=== PATIENT | female | born 1980 | race Caucasian/White ===

== ENCOUNTER 2017-09-07 18:41 | Emergency (ER) | payer BC ==
[2017-09-07 18:43] VITALS: BP 125/71; PULSE 87; RESP 14; TEMP 98.2; O2SAT 100
[2017-09-07] MEDS ORDERED: PRENCHW (19:17)
[2017-09-07 19:26] VITALS: BP_SYST 106; BP_SYST 110; BP_SYST 99; BP_DIAS 55; BP_DIAS 56; BP_DIAS 61; RESP 18; RESP 20; O2SAT 99
--- NOTE | 2017-09-07 19:26 | PD ---
HPI Chief Complaint: Syncope/Near-Syncope Time Seen by Provider: 19:20 Travel History International Travel<30 days: No Contact w/Intl Traveler<30days: No Traveled to known affect area: No History of Present Illness HPI 37-year-old female presents to the emergency department by private transportation the care of her and daughter for evaluation of syncopal episode. According the patient she is 25 weeks with last menstrual period March 2017 and do with plan 12/11/17. Patient states they traveled yesterday from [place] to [place] by car. Patient ate food in [place] that upset her stomach and her stomach he had diarrhea and she had nausea and then last evening had 2 episodes of vomiting without hematemesis or coffee-ground emesis possibly mildly bilious emesis and multiple episodes of diarrhea. This morning while she was in the process of getting ready in her hotel room she felt dizzy and then had a brief fainting spell she states that she was standing on carpet and felt dizzy with calling her and then found herself talking on the phone on the floor states that he picked up the phone within 2 rings and when he was talking to her she was talking normally and she states she merely felt better. Patient denies any head pain neck pain back pain chest pain shortness of breath rib pain abdominal pain pelvic pain flank pain or extremity pain. Patient states that she's had no vomiting or diarrhea since that event. Patient has been drinking Gatorade and possible throughout the day. Patient called her [employer] in [place] and the on-call provider recommend she come to the hospital to be evaluated. Patient's had no fever or chills. Patient's had episode of syncopal episodes after gastroenteritis in the past. Patient has had no contractions has had no pelvic pain has had no vaginal bleeding spotting or fluid leak. Patient also denies any dysuria frequency urgency hematuria or flank pain. Patient's had no respiratory illness symptoms. Patient states her daughter has had episode of vomiting 2 days ago. Patient is unclear if she may have had some dietary discretion by eating food to cause upset stomach yesterday or being exposed to a virus from her daughter 2 days before. Patient states she feels well now just decided to come to the emergency room to make sure that there was nothing associated with her . Patient again denies any pelvic pain pelvic cramping abdominal cramping abdominal contractions pelvic contractions back contractions vaginal discharge or vaginal bleeding vaginal spotting or fluid leak. Patient denies any chest pain or pleuritic chest pain or shortness of breath. Patient rates discomfort 0 10 in intensity. Patient states she felt fine yesterday prior to eating and [place]. [facility] Past Medical History Narrative Medical Ab0 no tobacco use no alcohol use nursing notes reviewed Tetanus Vaccination: Unknown Influenza Vaccination: No ?: LMP: 03/18/17 : 2 Para: 1 Past Surgical History Section: Yes Social History Alcohol Use: No Tobacco Use: No Substance Use: No Allergies-Medications (Allergen,Severity, Reaction): Coded Allergies: penicillin G (Verified Allergy, Unknown, 09/07/17) CHILDHOOD ALLERGY Reported Meds & Prescriptions Reported Meds & Active Scripts Active Reported 19 ( Vit W/ Ferrous Fumara) 29 Mg Iron-1 Mg Chw Review of Systems Except as stated in HPI: all other systems reviewed are Neg Physical Exam Narrative GENERAL: Well-developed well-nourished female in no acute distress no respiratory distress triage vital signs values are normal range GCS 15 SKIN: Warm and dry. HEAD: Atraumatic. Normocephalic. No scalp tenderness no bony abnormalities. EYES: Pupils equal and round. Extraocular muscles intact. No scleral icterus. No injection or drainage. ENT: No nasal bleeding or discharge. Mucous membranes pink and moist. Airway is patent. No hemotympanum. NECK: Trachea midline. No JVD. Supple no meningismus no midline tenderness to direct palpation along the cervical spine and no bony step-off. CARDIOVASCULAR: Regular rate and rhythm. Chest wall nontender to palpation. RESPIRATORY: No accessory muscle use. Clear to auscultation. Breath sounds equal bilaterally. GASTROINTESTINAL: Abdomen soft, non-tender, nondistended. Hepatic and splenic margins not palpable. Patient with fundal height to the umbilicus. Abdomen nontender to direct palpation. MUSCULOSKELETAL: Extremities without clubbing, cyanosis, or edema. No obvious deformities. NEUROLOGICAL: Awake and alert. No obvious cranial nerve deficits. Motor grossly within normal limits. Five out of 5 muscle strength in the arms and legs. Normal speech. PSYCHIATRIC: Appropriate mood and affect; insight and judgment normal. Data Data Last Documented VS Vital Signs Date Time Temp Pulse Resp B/P (MAP) Pulse Ox O2 Delivery O2 Flow Rate FiO2 1/6/18 19:26 99 Room Air 09/07/17 19:26 83 18 90 18 91 20 09/07/17 18:43 98.2 Orders Orders Electrocardiogram (09/07/17 19:20) Basic Metabolic Panel (Bmp) (09/07/17 19:20) Complete Blood Count With Diff (09/07/17 19:20) Magnesium (Mg) (09/07/17 19:20) Urinalysis - C+S If Indicated (09/07/17 19:20) Ecg Monitoring (09/07/17 19:20) Iv Access Insert/Monitor (09/07/17 19:20) Oximetry (09/07/17 19:20) Sodium Chloride 0.9% Flush (Ns Flush) (09/07/17 19:30) Orthostatic Vital Signs (09/07/17 19:20) Heart Tones (09/07/17 19:20) Protein Corrected Calcium(Pcc) (09/07/17 19:25) Urine Culture (09/07/17 19:25) Potassium Chloride (Kcl) (09/07/17 21:15) Calcium Carbonate Chew (Tums Chew) (09/07/17 21:15) Sodium Chlor 0.9% 1000 Ml Inj (Ns 1000 M (09/07/17 21:15) Nitrofurantoin Monohyd Macrocr (Macrobid (09/07/17 21:15) Labs Laboratory Tests Test 09/07/17 19:25 White Blood Count 9.3 TH/MM3 Red Blood Count 3.68 MIL/MM3 Hemoglobin 12.2 GM/DL Hematocrit 35.0 % Mean Corpuscular Volume 94.9 FL Mean Corpuscular Hemoglobin 33.1 PG Mean Corpuscular Hemoglobin Concent 34.9 % Red Cell Distribution Width 12.6 % Platelet Count 227 TH/MM3 Mean Platelet Volume 8.0 FL Neutrophils (%) (Auto) 82.5 % Lymphocytes (%) (Auto) 8.8 % Monocytes (%) (Auto) 7.4 % Eosinophils (%) (Auto) 1.0 % Basophils (%) (Auto) 0.3 % Neutrophils # (Auto) 7.6 TH/MM3 Lymphocytes # (Auto) 0.8 TH/MM3 Monocytes # (Auto) 0.7 TH/MM3 Eosinophils # (Auto) 0.1 TH/MM3 Basophils # (Auto) 0.0 TH/MM3 CBC Comment DIFF FINAL Differential Comment Urine Color LIGHT-YELLOW Urine Turbidity HAZY Urine pH 6.5 Urine Specific [place] 1.004 Urine Protein NEG mg/dL Urine Glucose (UA) NEG mg/dL Urine Ketones NEG mg/dL Urine Occult Blood NEG Urine Nitrite NEG Urine Bilirubin NEG Urine Urobilinogen LESS THAN 2.0 MG/DL Urine Leukocyte Esterase LARGE Urine RBC 3 /hpf Urine WBC 7 /hpf Urine Squamous Epithelial Cells 4 /hpf Urine Bacteria MANY /hpf Urine Hyaline Casts 1 /lpf Urine Mucus FEW /lpf Microscopic Urinalysis Comment CULTURE INDICATED Blood Urea Nitrogen 5 MG/DL Creatinine 0.51 MG/DL Random Glucose 99 MG/DL Total Protein 6.3 GM/DL Calcium Level 7.4 MG/DL Magnesium Level 1.7 MG/DL Sodium Level 136 MEQ/L Potassium Level 3.0 MEQ/L Chloride Level 105 MEQ/L Carbon Dioxide Level 24.3 MEQ/L Anion Gap 7 MEQ/L Estimat Glomerular Filtration Rate 135 ML/MIN Protein Corrected Calcium 7.8 MG/DL [facility] Medical Decision Making Medical Screen Exam Complete: Yes Emergency Medical Condition: Yes Medical Record Reviewed: Yes Interpretation(s) EKG: Normal sinus rhythm rate 80 normal axis and intervals no acute ST segment elevation or injury pattern or ectopy noted mild baseline artifact is present Differential Diagnosis Near-syncope vasovagal syncope arrhythmia I elect light disturbance dehydration PE Narrative Course patient placed on ocean transportation intermediary continuous pulse oximetry obtained and orthostatic blood pressure heart rate obtained IV access obtained specimens collected and sent for resulting Patient is a mature about the emergency department and voicing no concerns or complaints is had no nausea no vomiting taking oral hydration well Advise resulted and identified to have some hypokalemia potassium of 3.0 and hypocalcemia Calcium of 7.8 patient given oral replacement patient noted to have some mild change in orthostatic blood pressure and heart rate given 1 L of normal saline bolus and patient noted to have abnormal urinalysis with many bacteria leukocyte Estrace on clean-catch specimen therefore she was given oral Macrobid in the emergency department Patient's case was discussed with on-call OB ED physician recommend that patient is stable for outpatient management and no need for monitoring at this time and patient has confirm she has had no leg pain no vaginal discharge no vaginal bleeding no vaginal spotting and no fluid leak has had no cramping and has had no contraction like symptoms and feels well at this time is desirous of being discharged home this is been conveyed to the OB ED second time worker Dr. Vernon. Physician Communication Physician Communication discussed OB ED MD Dr Vernon --no need for monitoring --no OB complaints Diagnosis Primary Impression: Gastroenteritis Additional Impressions: Vasovagal syncope UTI (urinary tract infection) Qualified Codes: N39.0 - Urinary tract infection, site not specified Qualified Codes: Z3A.25 - 25 weeks gestation of Electrolyte disturbance Referrals: [employer] P[employer] Supervisor call for appointment Patient Instructions: General Instructions Additional Instructions: Increase fluid hydration Recommend clear liquid diet for next 12-24 hours advance as tolerated to bland/ James diet and regular diet as tolerated Increase potassium and calcium containing foods and beverages in dietary intake Continue vitamins Complete course of antibiotic as prescribed May take as tolerated Zofran for nausea and/or vomiting Take Tylenol/acetaminophen every 4 hours as needed for fever 100.4F or greater Return to the emergency department immediately for any concerns or change in condition Follow-up with your toolroom clerk call office in a.m. to schedule follow-up appointment Med/Other Pt SpecificInfo: Prescription(s) given Scripts Ondansetron Odt (Zofran Odt) 4 Mg Tab 4 MG SL Q6HR Y for Nausea/Vomiting, #7 TAB 0 Refills Prov: Margarita Montilla MD 09/07/17 Nitrofurantoin Monohydrate Macrocrystals (Macrobid) 100 Mg Cap 100 MG PO BID for Infection for 10 Days, #20 CAP 0 Refills Prov: Margarita Montilla MD 09/07/17 Disposition: 01 DISCHARGE HOME Condition: Stable Margarita Montilla MD Sep 07, 2017 19:26
[2017-09-07] MEDS ORDERED: SODIUM CHLORIDE 0.9% FLUSH 10 ML FLUSH IVF PRN (19:30)
[2017-09-07 19:41] LABS: AUTOMATED NEUTROPHIL # 7.6 TH/MM3 (1.8-7.7); BASOPHIL % 0.3 % (0.0-2.0); EOSINOPHIL # 0.1 TH/MM3 (0-0.4); HEMOGLOBIN 12.2 GM/DL (11.6-15.3); LYMPH % 8.8 % (9.0-44.0); LYMPHOCYTE # 0.8 TH/MM3 (1.0-4.8); MEAN CELL VOLUME 94.9 FL (80.0-100.0); MEAN CORPUSCULAR HEMOGLOBIN 33.1 PG (27.0-34.0); MEAN CORPUSCULAR HGB CONC 34.9 % (32.0-36.0); MONO % 7.4 % (0.0-8.0); MONOCYTE # 0.7 TH/MM3 (0-0.9); NEUT % 82.5 % (16.0-70.0); PLATELET COUNT 227 TH/MM3 (150-450); RED BLOOD COUNT 3.68 MIL/MM3 (4.00-5.30); RED CELL DISTRIBUTION WIDTH 12.6 % (11.6-17.2); WHITE BLOOD COUNT 9.3 TH/MM3 (4.0-11.0)
[2017-09-07 20:06] LABS: BICARBONATE 24.3 MEQ/L (21.0-32.0); CALCIUM 7.4 MG/DL (8.5-10.1); CREATININE 0.51 MG/DL (0.50-1.00); MAGNESIUM 1.7 MG/DL (1.5-2.5)
[2017-09-07 20:23] LABS: CALCIUM-PROTEIN CORRECTED 7.8 MG/DL (8.5-10.1); TOTAL PROTEIN 6.3 GM/DL (6.4-8.2)
[2017-09-07 20:35] LABS: BACTERIA, URINE MANY /hpf; BILIRUBIN, URINE NEG (NEG); BLOOD, URINE NEG (NEG); GLUCOSE,URINE NEG (NEG); HYALINE CAST, URINE 1 /lpf (RARE); KETONE, URINE NEG (NEG); MUCUS URINE FEW /lpf (OCC); NITRITE,URINE NEG (NEG); PH, URINE 6.5 (5.0-8.5); SQUAMOUS EPITHELIAL CELL URINE 4 /hpf (0-5); URINE COLOR LIGHT-YELLOW (YELLW/STRAW); URINE LEUKOCYTE ESTERASE LARGE (NEG)
[2017-09-07] MEDS ORDERED: POTASSIUM CHLORIDE 20 MEQ CONTROLLED RELEASE TAB PO ONE (21:15)
[2017-09-07] MEDS ORDERED: CALCIUM CARBONATE 500 MG CHEWABLE TAB CHEW ONE (21:15)
[2017-09-07] MEDS ORDERED: NITROFURANTOIN MONOHYD MACROCR 100 MG CAP PO ONE (21:15)
[2017-09-07] MEDS ORDERED: SODIUM CHLOR 0.9% 1000 ML INJ 1,000 ML IV ONE (21:15)
[2017-09-07] MEDS ORDERED: MACR100C2 PO (21:21)
[2017-09-07] MEDS ORDERED: ZOFR4TAB3 SL (21:21)
--- NOTE | 2017-09-08 13:39 | EKG ---
Date Performed: 09/07/2017 Time Performed: 19:31:57 PTAGE: 37 years EKG: Sinus rhythm NORMAL ECG NO PREVIOUS TRACING DOCTOR: Devon Barber Interpretating Date/Time 09/08/2017 13:39:11
== END 2017-09-07 22:11 | disposition home or self-care (01) ==
LOC: NEPC 18:41
DX: O26.892 Other specified pregnancy related conditions, second trimester (principal); K52.9 Noninfective gastroenteritis and colitis, unspecified; R55 Syncope and collapse; R42 Dizziness and giddiness; O23.42 Unspecified infection of urinary tract in pregnancy, second trimester; E87.8 Other disorders of electrolyte and fluid balance, not elsewhere classified; E87.6 Hypokalemia; E83.51 Hypocalcemia; Z3A.25 25 weeks gestation of pregnancy
CPT/HCPCS: 80048; 81001; 83735; 84155; 85025; 87086; 93005; 99284; J7030